=== PATIENT | female | born 1990 | race Hispanic/Latino ===

== ENCOUNTER 2023-02-19 10:49 | Emergency (ER) | payer OTHER ==
[~2023-02-19] VITALS: Ht 152.4 cm; Wt 59.0 kg
[2023-02-19 11:13] VITALS: BP 98/61; PULSE 72; RESP 14
[2023-02-19] MEDS ORDERED: ONDANSETRON ODT 4MG TAB SL ONE (12:00)
[2023-02-19] MEDS ORDERED: ACETAMINOPHEN 500 MG TABLET PO ONE (12:00)
[2023-02-19] MEDS ORDERED: [UNRECOGNIZED DRUG - SUPPLY] MC (13:37)
[2023-02-19] MEDS ORDERED: IBUP-2070 PO (13:37)
[2023-02-19] MEDS ORDERED: ONDA4TAB10 PO (13:37)
== END 2023-02-19 14:01 | disposition home or self-care (01) ==
LOC: EDH 10:49
DX: S09.90XA Unspecified injury of head, initial encounter (principal); R11.0 Nausea; R51.9 Headache, unspecified; H53.149 Visual discomfort, unspecified; Z90.49 Acquired absence of other specified parts of digestive tract; W11.XXXA Fall on and from ladder, initial encounter; Y93.89 Activity, other specified; Y92.89 Other specified places as the place of occurrence of the external cause; Y99.8 Other external cause status
CPT/HCPCS: 70450